=== PATIENT | male | born 1995 | race Caucasian/White ===

== ENCOUNTER 2019-03-26 10:32 | Day surgery (SDC) | payer OTHER ==
[2019-03-22 08:55] VITALS: BMI 23.3
[2019-03-26] MEDS ORDERED: Fentanyl 100 MCG/2 ML VIAL ONE ×2 (10:59→11:31)
[2019-03-26] MEDS ORDERED: Midazolam HCl 2 mg/2 ml Vial ONE ×2 (10:59→11:31)
[2019-03-26] MEDS ORDERED: Bacitracin Zinc Ointment 30 gm TUBE ONE (11:36)
[2019-03-26] MEDS ORDERED: Sodium Chloride 0.9% 10 ML ONE (11:36)
[2019-03-26] MEDS ORDERED: Bupivacaine PF 0.5% 30 ML VIAL ONE (11:36)
[2019-03-26] MEDS ORDERED: Betamet Acet/Betamet Na Ph 30 MG/5 ML VIAL ONE (11:36)
[2019-03-26] MEDS ORDERED: Ropivacaine 0.2% 550 ML 550 ML NERVE BLCK SCH (11:53)
[2019-03-26] MEDS ORDERED: Ondansetron PF 4 MG/2 ML Vial IVP PRN (11:53)
[2019-03-26] MEDS ORDERED: HYDROcodone/Acetaminophen 10/325 mg Tablet PO PRN ×2 (11:53)
[2019-03-26] MEDS ORDERED: Clindamycin/D5W 600 mg/50 ml Premix Bag ONE (11:53)
[2019-03-26] MEDS ORDERED: traMADol HCl 50 MG TAB PO PRN ×2 (11:53)
[2019-03-26] MEDS ORDERED: Zolpidem Tartrate 5 MG TAB PO PRN (11:53)
[2019-03-26] MEDS ORDERED: Ketorolac Tromethamine 30 MG/ML VIAL IVP PRN (11:53)
[2019-03-26] MEDS ORDERED: Promethazine HCl 25 MG/ML VIAL IM PRN (11:53)
[2019-03-26] MEDS ORDERED: Fentanyl 100 MCG/2 ML VIAL IV PRN (11:54)
[2019-03-26] MEDS ORDERED: Ketorolac Tromethamine 30 MG/ML VIAL ONE (16:14)
--- NOTE | 2019-03-26 18:05 | RAD ---
RIGHT WRIST RADIOGRAPHS THREE VIEWS: 03/26/19 HISTORY: ORIF. FINDINGS: Comparison is made with the study dated 11/09/18. Spot fluoroscopic images were performed by Dr. Hanks during the course of ORIF scaphoid waist frac ture. POS: RICH
[2019-03-26] MEDS ORDERED: Ondansetron ODT 4 MG TAB ONE (19:08)
--- NOTE | 2019-03-27 08:54 | OP ---
DATE OF PROCEDURE: 03/26/2019 PREOPERATIVE DIAGNOSIS: Nonunion right scaphoid. FINDINGS: Nonunion right scaphoid, complete, mid 3rd proximal third junction with definite evidence of punctate bleeder after debridement of nonunion. PROCEDURES PERFORMED: 1. Open reduction and internal fixation of scaphoid nonunion. 2. Bone graft harvested, corticocancellous plus cancellous graft, distal radius, right. 3. Bone grafting, corticocancellous, scaphoid nonunion. 4. C-arm supervision. 5. Application of long-arm splint. 6. Bone graft to the distal radius with cancellous bank bone to fill in the defect. SPECIMENS REMOVED: None. ESTIMATED BLOOD LOSS: 20 mL. ANESTHESIA: General LMA technique with augmented block. TOURNIQUET TIME: 118 minutes. OTHER FINDINGS: 1. Nonunion with humpback deformity, sagittal plane angulation and collapse. 2. Punctate bleeding from the portions of the fracture distal to the fracture line after curettage, debridement and paddling. DESCRIPTION OF PROCEDURE: After successful anesthesia listed above, the patient had the time-out done and was prepped and draped to include prepping the pelvis in case we needed this side for bone graft. We did not. Then, the limb was exsanguinated, tourniquet inflated to 250 mmHg pressure. We outlined incision over the scaphoid and FCR for approach to the scaphoid nonunion and over the zigzag over Manolo tubercle for approach for bone graft from distal radius harvest. We carried the incision through skin and subcutaneous tissue to reach the flexor carpi radialis tendon and going slightly radial to the tendon. We opened its bed, revealed the radiocarpal capsule which we opened as well to visualize the fracture. We also opened the scaphotrapezial joint for later fixation. We then found the fracture line with the help of C-arm and visualization with loupes, developed, and debrided until we had punctate bleeding. This created what was a collapse segment of 1% mm to one open segment of 3 mm grade open on the chondral, mars, and capitate surfaces than it was elsewhere. We released the tourniquet after debridement with a curette and paddling and we found with K-wire excellent punctate bleeding in all the holes that were created distal and proximal to the fracture line. For this reason, we chose to harvest distal radius as we need a 4 or 5 mm wide piece that was approximately 1 cm long, wedged appropriately to correct the palmar sagittal plane angulation more than it did the dorsal side. We created a cavity. We went to the distal radius and opening the space between the fourth and third dorsal compartments and visualizing the Manolo tubercle, we then harvested the graft using a saw that was approximately 1 cm wide, 4 mm deep and wedged with cortical bone/cancellous bone junction of 1 cm. This fit well and it was wedged into the construct. We then passed 2 K-wires, one as the guidewire as far central as possible and one slightly more ulna, which was the rotational wire nonetheless. Over this, we measured a 26 screw and decided to put a 24 screw and buried 1-2 mm. This was done after drilling without taping and we had some compression over 2 mm screw set up. The patient then had the final radiographs taken, we augmented the bone, the area dorsal and radial with the remainder of the cancellous bone graft harvested, especially when we modified to wedge. The patient then had the guidewire removed, tourniquet deflated, hemostasis obtained, we closed the capsule with the interrupted 2-0 Vicryl, subcutaneous closure with a running 3-0 Monocryl, and skin reapproximated with 4-0 nylon. The same closure was accomplished at the dorsal wound except here we placed approximately 10 mL of a corticocancellous bank bone, packed in the defect created for the bone graft to the scaphoid and we obtained hemostasis. We closed retinaculum with 2-0 Vicryl interrupted undyed, running 4-0 Monocryl to subcutaneous, closed the skin with 4-0 nylon. A bulky dressing was applied over a sugar-tong splint and the patient left the operating room without evidence of anesthetic or operative complication. Job ID: [id number]
== END 2019-03-26 19:30 | disposition home or self-care (01) ==
LOC: SDC 10:32
PROVIDERS: ATTEND Orthopaedic Surgery Hand Surgery
PROC: 0PUM07Z Supplement Right Carpal with Autologous Tissue Substitute, Open Approach (ICD-10-PCS; principal; 2019-03-26)
PROC: 0PBH0ZZ Excision of Right Radius, Open Approach (ICD-10-PCS; principal; 2019-03-26)
DX: S62.021A Displaced fracture of middle third of navicular [scaphoid] bone of right wrist, initial encounter for closed fracture (principal); Z79.899 Other long term (current) drug therapy; Z88.2 Allergy status to sulfonamides
CPT/HCPCS: 76000; A4306; C1713; J0702; J1885; J2250; J2795; J3010; J3490; Q0162; S0020

== ENCOUNTER 2020-03-12 23:34 | Emergency (ER) | payer BC | END 2020-03-13 00:25 | disposition home or self-care (01) | LOC: ERS 23:34 | DX: S60.811A Abrasion of right wrist, initial encounter (principal); S80.211A Abrasion, right knee, initial encounter; F32.9 Major depressive disorder, single episode, unspecified; Z87.891 Personal history of nicotine dependence; V29.9XXA Motorcycle rider (driver) (passenger) injured in unspecified traffic accident, initial encounter | CPT/HCPCS: 99284 ==